=== PATIENT | male | born 1940 | race Caucasian/White ===

== ENCOUNTER 2021-05-24 14:40 | Outpatient (CLI) | payer OTHER | END 2021-05-24 15:00 | disposition home or self-care (01) | LOC: PPH VACUNA 14:40 | PROVIDERS: ATTEND Emergency Medicine Pediatric Emergency Medicine | DX: Z23 Encounter for immunization (principal) ==

== ENCOUNTER 2022-05-07 13:44 | Outpatient (CLI) | payer OTHER | END 2022-05-07 13:54 | disposition home or self-care (01) | LOC: PPH VACUNA 13:44 | PROVIDERS: ATTEND Emergency Medicine Pediatric Emergency Medicine | DX: Z23 Encounter for immunization (principal) ==